=== PATIENT | male | born 1985 | race African-American/Black ===

== ENCOUNTER 2019-03-03 20:41 | Emergency (ER) | payer MEDICAID, OTHER ==
[~2019-03-03] VITALS: Ht 185.4 cm; Wt 91.0 kg
[2019-03-03 21:27] VITALS: BP 115/65
== END 2019-03-03 23:21 | disposition home or self-care (01) ==
LOC: ER 20:41
DX: M54.5 Low back pain (principal); M62.830 Muscle spasm of back
CPT/HCPCS: 99283

== ENCOUNTER 2023-12-07 07:40 | Emergency (ER) | payer MEDICAID ==
[~2023-12-07] VITALS: Ht 185.4 cm; Wt 88.5 kg
[2023-12-07 08:07] VITALS: O2SAT 99
[2023-12-07] MEDS: LIDOCAINE HCL 1% 50ML VIAL (10MG/ML) INFIL ONE (08:33)
[2023-12-07] MEDS: LIDOCAINE HCL 1% 20ML VIAL INFIL ONE (08:34)
[2023-12-07 09:07] VITALS: BP 117/60; PULSE 74; RESP 16; TEMP 36.78072; O2SAT 99
[2023-12-07] MEDS: LIDOCAINE HCL 1% 20ML VIAL INFIL NR (09:07)
== END 2023-12-07 09:07 | disposition home or self-care (01) ==
LOC: ER 07:51
DX: S61.412D Laceration without foreign body of left hand, subsequent encounter (principal); Z48.02 Encounter for removal of sutures; X58.XXXD Exposure to other specified factors, subsequent encounter
CPT/HCPCS: 99282; J3490; Z7610 ×4